=== PATIENT | female | born 1970 | race African-American/Black ===

== ENCOUNTER 2021-03-05 09:53 | Emergency (ER) | payer BC, MEDICAID ==
[~2021-03-05] VITALS: Ht 157.5 cm; Wt 105.0 kg
[2021-03-05] MEDS ORDERED: HYDROCODONE/ACETAMINOPHEN 5/325MG TABLET PO ONE (10:30)
[2021-03-05] MEDS ORDERED: T3 PO (11:42)
[2021-03-05] MEDS ORDERED: IBUP-2029 MT (11:42)
[2021-03-05 12:48] VITALS: BP 115/74
== END 2021-03-05 12:49 | disposition home or self-care (01) ==
LOC: ER 09:53
DX: U07.1 COVID-19 (principal); R06.02 Shortness of breath; R05.9 Cough, unspecified; R07.89 Other chest pain; I10 Essential (primary) hypertension; Z88.0 Allergy status to penicillin
CPT/HCPCS: 73562; 99284; C9803; L1830; U0003; U0005; Z7610